=== PATIENT | female | born 1990 | race Caucasian/White ===

== ENCOUNTER 2025-07-18 12:23 | Emergency (ER) | payer BC ==
[~2025-07-18] VITALS: Ht 160 cm; Wt 50.3 kg
[2025-07-18] MEDS: ACETAMINOPHEN 500 MG TAB PO ONE (17:23)
[2025-07-18] MEDS: KETOROLAC 60 MG/2 ML VIAL IM ONE (17:24)
[2025-07-18] MEDS ORDERED: HOME MED LIST COMPLETE! XX SCH (18:35)
[2025-07-18] MEDS ORDERED: PERCOCET PO (19:02)
[2025-07-18] MEDS: IBUPROFEN 600 MG TAB PO ONE ×2 (19:15)
[2025-07-18] MEDS: OXYCODONE/APAP 5MG/325MG(HOME DOSE PACK) PO ONE (19:19)
[2025-07-18 19:20] VITALS: BP 115/79; TEMP 98.1; O2SAT 98
== END 2025-07-18 19:26 | disposition home or self-care (01) ==
LOC: M ED 12:23
DX: S63.501A Unspecified sprain of right wrist, initial encounter (principal); W19.XXXA Unspecified fall, initial encounter; Y92.009 Unspecified place in unspecified non-institutional (private) residence as the place of occurrence of the external cause; Y93.9 Activity, unspecified; Y99.9 Unspecified external cause status
CPT/HCPCS: 73090; 73110; 96372; 99284; J1885